=== PATIENT | female | born 1970 | race Caucasian/White ===

== ENCOUNTER → 2023-11-30 06:31 | Day surgery (SDC) | payer OTHER, SELFPAY | LOC: GI 06:31 | PROVIDERS: ATTENDING PHYSICIAN Internal Medicine Gastroenterology; FAMILY PHYSICIAN Family Medicine | DX: Z12.11 Encounter for screening for malignant neoplasm of colon (principal); K64.8 Other hemorrhoids | CPT/HCPCS: G0121 ==

== ENCOUNTER 2023-12-17 08:52 | Emergency (ER) | payer OTHER, SELFPAY ==
[2023-12-17 09:12] VITALS: BP 153/93
--- NOTE | 2023-12-17 09:30 | ED.SKININJ ---
HPI-Injury
General
Chief Complaint: Bite
Source: patient
Exam Limitations: none
Time Seen by Provider: 12/17/23 09:23
Travel History
Have you had any contact with someone who has COVID-19?: No
Do you have any symptoms of coronavirus? Fever > 100 degrees, chills, cough, shortness of breath, sore throat, loss of taste or smell, muscle aches, or headache?: No
History of Present Illness-Injury
Is this injury a work related problem?: No
Is pt an associate of [facility]?: No
Initial Injury comments:
See MDM
Past History
Past History
ED Past Medical History: None
ED Past Surgical History: None
Social History
Tobacco: Non-smoker
Alcohol: None
Phy Exam
Physical Exam
Physical Exam:
See MDM
Course
Orders/Labs/Results
Orders:
Orders
12/17/23 09:29
Diphenhydramine [Benadryl] 25 mg PO NOW STA
12/17/23 09:30
Doxycycline [Vibramycin] 100 mg PO ONCE ONE
Vital Signs
Initial and Last Documented VS:
Initial Vital Signs
Temp Pulse Resp BP Pulse Ox
98.1 F 70 18 153/93 98
12/17/23 09:12 12/17/23 09:12 12/17/23 09:12 12/17/23 09:12 12/17/23 09:12
Last Documented Vital Signs
Temp Pulse Resp BP Pulse Ox
98.1 F 70 18 153/93 98
12/17/23 09:12 12/17/23 09:12 12/17/23 09:12 12/17/23 09:12 12/17/23 09:12
MDM/Problems Addressed
Differential Diagnosis Includes:
HPI and MDM Narrative:
53-year-old female presenting with worsening redness around bug bites. Few days ago, she believes she was bit by a brown recluse spider on her right knee and her right forearm. She went to urgent care and was prescribed steroids. Patient is now
noticing that the center portion of these bug bites is black and the surrounding redness is worse
On exam, there are multiple bug bites to her knee and forearm. On several of them, there is a small black eschar in the center.
Physical exam
General: Well appearing and non-toxic
HEENT: protecting airway
Neck: appears supple
CV: No evidence of cyanosis
Resp: No accessory muscle use
Abd: Non-distended
Extremities: No deformities
Neuro: alert
Psych: Normal affect
Skin: multiple bug bites to her right knee and forearm. On several of them, there is a small black eschar in the center.
Problems Addressed including Acute and Chronic Conditions affecting care:
1. Bug bite
Acuity: acute
Prognosis: stable
Details: Given the worsening symptoms, will start doxycycline. If this truly is from a brown recluse, discussed follow-up with surgery as this develop into necrosis. She denies any abdominal pain
Differential Diagnosis (but not limited to):
Testing considered:
Drug therapy (if applicable): OTC meds, please see d/c instruction regarding Rx drugs
Amount and/or Complexity of Data Reviewed
Clinical info obtained from: Patient
External data reviewed: N/A
Labs I independently reviewed (but not limited to): N/A
Radiology: N/A
Pulse Ox: not hypoxic
EKG independently reviewed: N/A
Medical Office Receptionist: N/A
Critical Care: N/A
Risk of Complication:
Social Determinants of health: Good social support
Discussed with other providers: N/A
Escalation of Care includes Admit/Obs: After being observed in the Emergency Department, pt stable for discharge.
Occasional wrong word or 'sound a like' substitutions may have occurred due to the inherent limitations of voice recognition software. Read the chart carefully and recognize, using context, where substitutions have occurred.
*Critical Care Note
Total Time (30-74mins, 75-104mins- exclusive of procedures): Not Applicable
ED Attending Note
-
Portions of this chart may have been created with voice recognition software.� Occasional wrong word or��sound alike� substitutions may have occurred due to the inherent limitations of voice recognition software.
Discharge Plan
Departure
Patient Disposition: Home (Routine Discharge)
Date of Disposition: 12/17/23
Time of Disposition: :31
Patient with high blood pressure during this ER visit?: Yes
Discharge Problem:
Spider bite
Instructions: Insect Bites and Stings (DC)
Prescriptions:
New
doxycycline hyclate 100 mg capsule
100 mg PO BID Qty: 14 0RF
Referrals:
Sergio Burleson MD [Active] -
Activity Restrictions/Additional Instructions:
Watch for worsening signs of infection: fever over 100.5', increasing pain, red streaks around wound, swelling, or increasing drainage of pus. If any of these happen, return to ED promptly. Make sure that you take all your antibiotics as directed
and finish your prescription even if you feel better before the bottle is empty
As we discussed, if this was from a brown recluse spider, the skin can become necrotic and require surgical debridement. If you notice any worsening symptoms, please call the surgeon.
Interventions
Interventions:
*Risk Screen - Suicide Last Done: 12/17/23 09:12
*General Assessment Last Done: 12/17/23 09:12
*Neglect/Abuse Screening Last Done: 12/17/23 09:12
*ED COVID-19 Vaccine History Last Done: 12/17/23 09:12
Discharge Date and Time
Print Language: RWANDAN
[2023-12-17] MEDS: BENADRYL 25 MG PO (09:44)
[2023-12-17] MEDS: VIBRAMYCIN 100 MG PO (09:44)
== END 2023-12-17 09:50 | disposition home or self-care (01) ==
LOC: EMR 08:52
PROVIDERS: EMERGENCY PHYSICIAN Student in an Organized Health Care Education/Training Program; FAMILY PHYSICIAN Family Medicine
DX: T63.301A Toxic effect of unspecified spider venom, accidental (unintentional), initial encounter (principal)
CPT/HCPCS: 99282